=== PATIENT | male | born 1960 | race Caucasian/White ===

== ENCOUNTER 2022-07-22 13:15 | Inpatient (IN) | payer BC ==
[~2022-07-22] VITALS: Ht 182.9 cm; Wt 81.6 kg
--- NOTE | 2022-07-22 13:16 | NUR ---
PT MICHELLE [facility] SQUAD [address]
[2022-07-22 13:19] VITALS: BP 140/80
--- NOTE | 2022-07-22 13:23 | NUR ---
62/M BIBA FROM [facility] [place] D/T SHORTNESS OF BREATH AT CLINIC. PER EMS, PT GIVEN SOLUMEDROL AND 2.5 ALBUTEROL FROM CLINIC RESEARCH AND DEVELOPMENT ENGINEER. PT THEN PLACED ON CPAP VIA EMS EN ROUTE WITH SAT @ 97%. PT PLACED ON BIPAP AT 12/5 @ 40% WITH RATE OF 10 AND NOW SATTING 100%. PT CALM, NO ACUTE DISTRESS. ON MONITOR. PMH: COPD NKA
[2022-07-22] MEDS ORDERED: ALBUTEROL SULFATE/IPRATROPIU 3 ML SOL IH ONE (13:25)
--- NOTE | 2022-07-22 13:36 | NUR ---
COVID AND FLU SWAB COLLECTED AND SENT TO LAB
--- NOTE | 2022-07-22 13:38 | NUR ---
RT AT BEDSIDE FOR BR TX
--- NOTE | 2022-07-22 13:44 | NUR ---
EKG DONE AT BEDSIDE
--- NOTE | 2022-07-22 13:53 | NUR ---
CONSULTING PSYCHIATRIST AT BEDSIDE FOR BLODO DRAW
[2022-07-22 14:19] LABS: PHOSPHORUS 3.5 mg/dL (2.5-4.9)
--- NOTE | 2022-07-22 14:21 | NUR ---
XR AT BEDSIDE
[2022-07-22 14:25] LABS: BASOPHILS # (AUTO) 0.1 K/uL (0.00-0.22); BASOPHILS % (AUTO) 0.8 % (0.0-2.0); EOSINOPHILS # (AUTO) 0.6 K/uL (0-0.4); EOSINOPHILS % (AUTO) 6.4 % (0.0-4.0); HEMATOCRIT 52.7 % (36-52); HEMOGLOBIN 17.4 g/dL (12.0-18.0); LYMPHOCYTES # (AUTO) 0.8 K/uL (2.0-11.5); LYMPHOCYTES % (AUTO) 7.4 % (20.5-51.1); MEAN CORPUSCULAR HEMOGLOBIN 32 pg (27-31); MEAN CORPUSCULAR HGB CONC 33 g/dL (33-37); MEAN CORPUSCULAR VOLUME 95.6 fL (80-94); MONOCYTES # (AUTO) 0.5 K/uL (0.8-1.0); NEUTROPHILS # (AUTO) 8.2 K/uL (1.8-7.7); NEUTROPHILS % (AUTO) 80.4 % (42.2-75.2); PLATELET COUNT (AUTO) 256 K/uL (140-450); RED BLOOD CELL COUNT(AUTO) 5.51 MIL/uL (4.20-6.10); RED CELL DISTRIBUTION WIDTH 14.1 % (11.6-13.7); WHITE BLOOD COUNT (AUTO) 10.1 K/uL (4.8-10.8)
[2022-07-22 14:40] LABS: ALBUMIN 4.2 g/dL (3.4-5.0); ANION GAP 15.9 (8-16); CARBON DIOXIDE 24.7 mmol/L (21-32); CREATININE 1.3 mg/dL (0.6-1.3); POTASSIUM 4.6 mmol/L (3.5-5.1); TOTAL BILIRUBIN 0.7 mg/dL (0.0-1.0)
[2022-07-22 14:42] LABS: PROTHROMBIN TIME 10.5 secs (10.8-13.4)
--- NOTE | 2022-07-22 15:10 | NUR ---
Saul mcdaniel in ED - 07/22/22 at 1517 by [id number] VBG DRAWN AND GIVEN TO RT. PER LAVELL ALMONTE TO DRAW VBG INSTEAD OF ABG
--- NOTE | 2022-07-22 15:10 | NUR ---
ABG DRAWN AND GIVEN TO RT
--- NOTE | 2022-07-22 15:15 | NUR ---
PT PLACED ON 4L NC AND TOLERATING WELL @ 94%. NO ACUTE DISTRESS NOTED
[2022-07-22 15:23] LABS: APPEARANCE,URINE CLEAR (CLEAR); BILIRUBIN,URINE NEGATIVE (NEGATIVE); BLOOD, URINE NEGATIVE (NEGATIVE); COLOR,URINE YELLOW (YELLOW); LEUKOCYTE ESTERASE ,URINE NEGATIVE (NEGATIVE); NITRITE, URINE NEGATIVE (NEGATIVE); UGLUCOSE NEGATIVE (NEGATIVE)
[2022-07-22] MEDS ORDERED: OSELTAMIVIR PHOSPHATE 75 MG CAP PO ONE (16:20)
[2022-07-22] MEDS ORDERED: AZITHROMYCIN 500 MG in DEXTROSE 5% 250 ML IV ONE (16:20)
[2022-07-22] MEDS ORDERED: cefTRIAXone 1,000 MG VIAL ONE (16:41)
[2022-07-22] MEDS ORDERED: AZITHROMYCIN 500 MG INJ VIAL IV ONE (17:02)
[2022-07-22] MEDS ORDERED: ALBUTEROL 0.083% 2.5 MG/3 ML NEBU INH ONE (17:05)
--- NOTE | 2022-07-22 17:09 | NUR ---
PT C/O NEW ONSET SHORTNESS OF BREATH. ERMD NOTIFIED. PAGED RT FOR BR TX. PT SATTING 94% ON 4L
--- NOTE | 2022-07-22 17:13 | NUR ---
RT AT BEDSIDE WITH BR TX
--- NOTE | 2022-07-22 17:39 | NUR ---
PT REPORTS DECREASED SHORTNESS OF BREATH AFTER BR TX.
[2022-07-22] MEDS ORDERED: ATOR40TA PO (18:36)
[2022-07-22] MEDS ORDERED: ASPI-1822 PO (18:36)
[2022-07-22] MEDS ORDERED: AMLO10TA PO (18:36)
[2022-07-22] MEDS ORDERED: BENA40TA PO (18:36)
--- NOTE | 2022-07-22 19:30 | NUR ---
RECEIVED IN BED 8, PENDING ADMISSION FOR COPD EXACERBATION. IS AWAKE, ALERT. O2 CONTINUES AT 4L N/C. PT STATES HE DOES NOT FEEL SOB AT THIS TIME. RESPIRATIONS ARE REGULAR AND UNLABORED.
[2022-07-22 20:15] VITALS: BP 149/95
--- NOTE | 2022-07-22 20:15 | NUR ---
RECEIVED PATIENT FROM ER A NEW ADMIT. ORIENTATION TO MST ROUTINE, UPDATED WHITEBOARD. PATIENT IS AWAKE, ALERT AND ORIENTED X4. SOB ON EXERTION, ON 4L NC SAT AT 94%. DENIES PAIN AT THIS TIME. SKIN WARM AND DRY TO TOUCH. SAFETY PRECAUTION IN PLACE. CALL LIGHT IN REACH, ENCOURAGED TO CALL IF ASSISTANCE IS NEEDED.
--- NOTE | 2022-07-22 20:15 | NUR ---
TRANSFERED TO [facility] VIA GURNEY, ATTACHED TO SENIOR PRINCIPAL ARCHITECT, ACCOMPANIED BY 2 RNS. REPORT GIVEN TO KERRIE IVY.
--- NOTE | 2022-07-22 20:20 | NUR ---
MRSA OF THE NARES DONE AND SENT TO THE LAB PER PROTOCOL.
--- NOTE | 2022-07-22 21:02 | NUR ---
PROVIDED FOOD PER PT'S REQUEST.
--- NOTE | 2022-07-22 21:18 | NUR ---
ORDERS GIVEN BU DR. SOTELO AND WILL BE CARRIED OUT.
[2022-07-22] MEDS: ALBUTEROL SULFATE/IPRATROPIU 3 ML SOL IH PRN (23:40)
--- NOTE | 2022-07-22 23:40 | NUR ---
Patient had breathing treatment, wheezing noted. Call placed to dr. douglass. awaiting call back.
--- NOTE | 2022-07-22 23:52 | NUR ---
Per pt: I feel a lot better." no wheezing noted at this time.
[2022-07-23] VITALS (7 sets, daily range): BP systolic 107–143; BP diastolic 61–94
--- NOTE | 2022-07-23 00:45 | NUR ---
Patient is awake, watching tv. denies shortness of breath at this time.
[2022-07-23] MEDS ORDERED: MORPHINE SULFATE 2 MG/ML SYR IVP PRN (01:20)
[2022-07-23] MEDS ORDERED: HYDROcodone/APAP 5/325 MG 1 TAB TAB PO PRN (01:20)
[2022-07-23] MEDS ORDERED: MAGNESIUM OXIDE 400 MG TAB PO PRN (01:20)
[2022-07-23] MEDS ORDERED: POTASSIUM CHLORIDE 10 MEQ TABER PO PRN (01:20)
[2022-07-23] MEDS ORDERED: ACETAMINOPHEN 325 MG TAB PO PRN (01:20)
[2022-07-23] MEDS ORDERED: ONDANSETRON 4 MG/2 ML VIAL IM/IVP PRN (01:20)
[2022-07-23] MEDS ORDERED: DOCUSATE SODIUM 100 MG GELCAP PO PRN (01:20)
[2022-07-23] MEDS ORDERED: SODIUM PHOS / POTASSIUM PHOS 1 PKT PDR PO PRN (01:20)
[2022-07-23] MEDS ORDERED: guaiFENesin 20 MG/ML UDC PO PRN (01:25)
--- NOTE | 2022-07-23 02:33 | NUR ---
PATIENT IS ASLEEP. NO S/SX OF PAIN NOR DISCOMFORT. CALL LIGHT IN REACH.
[2022-07-23] MEDS: methylPREDNISolone SS 40 MG/ML VIAL IVP SCH ×3 (04:38→21:44)
[2022-07-23] MEDS: ALBUTEROL SULFATE/IPRATROPIU 3 ML SOL IH PRN (05:33)
[2022-07-23] MEDS: ALBUTEROL SULFATE/IPRATROPIU 3 ML SOL IH SCH ×3 (06:00→19:27)
--- NOTE | 2022-07-23 06:12 | NUR ---
PATIENT IS AWAKE, LYING ON THE BED, HOB ELEVATED, WATCHING TV, DENIES SOB, ON O2 NC, DENIES PAIN/DISCOMFORT. CALL LIGHT IS WITHIN REACH. SAFETY PRECAUTIONS IN PLACE.
[2022-07-23] MEDS ORDERED: ALBUTEROL SULFATE/IPRATROPIU 3 ML SOL IH SCH (07:00)
--- NOTE | 2022-07-23 07:14 | NUR ---
ENDORSED PATIENT TO DAY NURSE FOR CONTINUITY OF CARE. PATIENT IS STABLE.
[2022-07-23 07:32] LABS: BASOPHILS % (AUTO) 0.2 % (0.0-2.0); HEMATOCRIT 49.6 % (36-52); HEMOGLOBIN 16.5 g/dL (12.0-18.0); LYMPHOCYTES # (AUTO) 0.4 K/uL (2.0-11.5); MEAN CORPUSCULAR HEMOGLOBIN 32 pg (27-31); MEAN CORPUSCULAR HGB CONC 33 g/dL (33-37); MEAN CORPUSCULAR VOLUME 95.6 fL (80-94); MONOCYTES # (AUTO) 0.3 K/uL (0.8-1.0); MONOCYTES % (AUTO) 2.2 % (1.7-9.3); NEUTROPHILS # (AUTO) 11.9 K/uL (1.8-7.7); NEUTROPHILS % (AUTO) 94.6 % (42.2-75.2); PLATELET COUNT (AUTO) 230 K/uL (140-450); RED BLOOD CELL COUNT(AUTO) 5.19 MIL/uL (4.20-6.10); RED CELL DISTRIBUTION WIDTH 13.8 % (11.6-13.7); WHITE BLOOD COUNT (AUTO) 12.6 K/uL (4.8-10.8)
[2022-07-23 07:43] LABS: ANION GAP 15.2 (8-16); CARBON DIOXIDE 26.4 mmol/L (21-32); CREATININE 1.3 mg/dL (0.6-1.3); POTASSIUM 4.6 mmol/L (3.5-5.1)
[2022-07-23 07:58] LABS: MAGNESIUM 2.2 mg/dL (1.8-2.4); PHOSPHORUS 3.2 mg/dL (2.5-4.9)
[2022-07-23] MEDS: ASPIRIN 81 MG TAB.CHEW PO SCH (10:49)
[2022-07-23] MEDS: OSELTAMIVIR PHOSPHATE 75 MG CAP PO SCH ×2 (10:50→21:44)
[2022-07-23] MEDS: AZITHROMYCIN 250 MG TAB PO SCH (10:50)
[2022-07-23] MEDS: BENAZEPRIL 20 MG TAB PO SCH (10:51)
[2022-07-23] MEDS: amLODIPine 5 MG TAB PO SCH (10:53)
[2022-07-23] MEDS: LORATADINE 10 MG TAB PO SCH (11:25)
[2022-07-23] MEDS: MONTELUKAST SODIUM 10 MG TAB PO SCH (11:26)
[2022-07-23] MEDS: PANTOPRAZOLE 40 MG TABEC PO SCH (11:28)
--- NOTE | 2022-07-23 14:46 | NUR ---
DC PLANNING SW MET WITH PT AT BEDSIDE TO COMPLETE ASSESSMENT. PT REPORTS RESIDING ON A GROUND FLOOR APT, ALONE, AT THE ADDRESS LISTED ON FILE. PT IDENTIFIED BONITA REYES, SON, EMERGENCY CONTACT. PT REPORTS THAT HE DOES NOT WANT HIS SON CALLED FOR ANY REASON, UNLESS HE PASSES. PT REPORTS MEETING WITH PCP. DR. ARELIS LOPEZ AT [facility] IN [place], NEEDED, LAST VISIT; 2 WEEKS AGO. PT REPORTS RECENTLY BEING NON COMPLIANT WITH MEDICATIONS, WHEN ASKED WHY, PT REPORTS THAT HE SIMPLY JUST DIDN'T TAKE. PT DENIES BARRIERS IN ACCESS TO MEDICATION AND REPORTS RECEIVING MEDICATION FROM [facility] IN [place], WHEN NEEDED. PT REPORTS BEING INDEPENDENT IN ALL ACTIVITIES AND DENIES USE OF DME. PT COMPLETES ADLS INDEPENDENTLY. PT DENIES MH HX. PT REPORTS SUBSTANCE USE HX OF ALCOHOL USE AND TOBACCO USE. PT REPORTS BEING SOBER FROM ALCOHOL FOR 20 YRS AND REPORTS HE STOPPED SMOKING,12 YRS AGO. PT DENIES HX OF DIALYSIS, HH, AND SNF PLACEMENT. PT REPORTS BEING TOLD THAT HE IS BORDERLINE DIABETIC HOWEVER, PT DOES NOT TAKE INSULIN OR MEDICATION. PT REPORTS ADEQUATE FOOD IN THE HOME AND ADEQUATE FRIEND AND FAMILY SUPPORT. PT REPORTS DC IS TO RETURN HOME, HOWEVER, PT REPORTS HE MAY REQUIRE RIDE SHARE SERVICE TO HIS CAR, ONCE DC. NOTIFIED PT THAT RIDE SHARE SERVICE CAN BE ARRANGED BY NURSE, ONCE CLEARED FOR DC. Addendum: 07/23/22 at 1449 by Jd SOTO Amended: Links added.
[2022-07-23] MEDS ORDERED: ALBUTEROL SULFATE/IPRATROPIU 3 ML SOL IH PRN (16:35)
--- NOTE | 2022-07-23 16:44 | NUR ---
PATIENT HAS BEEN SCREENED AND CATEGORIZED MODERATE NUTRITION RISK. PATIENT WILL BE SEEN WITHIN 3-5 DAYS OF ADMISSION. 07/22/22-07/27/22 NOTED: INCORRECT BMI AFTER CONFIRMING WITH PT'S CHART REVIEWED BY ABEL DESAI RD
--- NOTE | 2022-07-23 19:59 | NUR ---
1926 LOWERED FIO2 TO 2LNC. SATS 92%. ADDED WATER FOR HUMIDIFICATION
[2022-07-23] MEDS: ATORVASTATIN 20 MG TAB PO SCH (21:44)
--- NOTE | 2022-07-23 23:11 | NUR ---
PT ARRIVED FROM ED AT 2107 IN [facility]. PT A+O*4. PT C/O PAIN AND WAS GIVEN, PER HER REQUEST, NORCO. MEDICATION EFFECTIVE W/I 1 HR OF ADMINISTRATION. PT THEN VERBALIZED WANTING TO HAVE A ROOM CHANGE OR BE DISCHARGED HOME D/T ROOMMATE "NOISE". PT WAS SWITCHED TO ROOM 107B W/O INCIDENT.
[2022-07-24] MEDS: ALBUTEROL SULFATE/IPRATROPIU 3 ML SOL IH SCH ×4 (01:09→19:24)
[2022-07-24] MEDS: methylPREDNISolone SS 40 MG/ML VIAL IVP SCH ×3 (05:00→21:56)
--- NOTE | 2022-07-24 07:26 | NUR ---
RECEIVED REPORT FROM DIRECTOR MEETINGS NURSE ANNE MARIE FOR CONTINUITY OF CARE. PT AWAKE IN BED. A&O4, ABLE TO MAKE NEEDS KNOWN. RT AT BEDSIDE GIVING PT BREATHING TREATMENT. ON FINANCIAL ECONOMIST. SKIN IS INTACT, WARM AND DRY TO TOUCH. IV SITE ON RAC G18, SL. RT LEFT PT ON 2L NC, PER PT HE FELT BETTER TODAY. NO SOB. NO C/O OF PAIN. CALL LIGHT WITHIN REACH. SAFETY PRECAUTIONS IN PLACE.
[2022-07-24 07:42] LABS: ANION GAP 13.9 (8-16); CREATININE 1.4 mg/dL (0.6-1.3); POTASSIUM 4.9 mmol/L (3.5-5.1)
[2022-07-24 07:46] LABS: HEMATOCRIT 47.5 % (36-52); HEMOGLOBIN 15.8 g/dL (12.0-18.0); MEAN CORPUSCULAR HEMOGLOBIN 31 pg (27-31); MEAN CORPUSCULAR HGB CONC 33 g/dL (33-37); MEAN CORPUSCULAR VOLUME 94.3 fL (80-94); PLATELET COUNT (AUTO) 268 K/uL (140-450); RED BLOOD CELL COUNT(AUTO) 5.03 MIL/uL (4.20-6.10); RED CELL DISTRIBUTION WIDTH 14.3 % (11.6-13.7); WHITE BLOOD COUNT (AUTO) 18.1 K/uL (4.8-10.8)
[2022-07-24 08:00] VITALS: BP 137/75
[2022-07-24] MEDS ORDERED: CLINICAL MONITORING MC PRN (08:20)
[2022-07-24] MEDS: AZITHROMYCIN 250 MG TAB PO SCH (08:31)
[2022-07-24] MEDS: LORATADINE 10 MG TAB PO SCH (08:32)
[2022-07-24] MEDS: ASPIRIN 81 MG TAB.CHEW PO SCH (08:32)
[2022-07-24] MEDS: amLODIPine 5 MG TAB PO SCH (08:32)
[2022-07-24] MEDS: PANTOPRAZOLE 40 MG TABEC PO SCH (08:33)
[2022-07-24] MEDS: BENAZEPRIL 20 MG TAB PO SCH (08:33)
[2022-07-24] MEDS: MONTELUKAST SODIUM 10 MG TAB PO SCH (08:33)
--- NOTE | 2022-07-24 08:40 | NUR ---
ADMINISTERED SCHEDULED MORNING MEDS. PT TEACHING ABOUT MEDS GIVEN. PT VERBALIZED UNDERSTANDING. CALLED PHARMACY REGARDING TAMIFLU NOT AVAILABLE ON BOTH [facility] OMNICELS. PER PHARMACIST, WAIT FOR THE DELIVERY FROM THE OTHER HOSPITAL.
--- NOTE | 2022-07-24 09:05 | NUR ---
PT CHECKED AND SEEN BY DR BALDERAS.
[2022-07-24 09:13] LABS: LYMPHOCYTES % (MANUAL) 2 % (20-46); MONOCYTES % (MANUAL) 4 % (5-12)
[2022-07-24] MEDS: OSELTAMIVIR PHOSPHATE 30 MG CAP PO SCH (11:29)
--- NOTE | 2022-07-24 11:33 | NUR ---
SCHEDULED TAMIFLU ADMINISTERED. PT TOLERATED WELL. PT SITTING AT BEDSIDE. NO COMPLAINTS OF PAIN. NO SOB. PT STATED, "I FEEL BETTER". CALL LIGHT WITHIN REACH. SAFETY PRECAUTIONS IN PLACE.
[2022-07-24 12:00] VITALS: BP 102/68
--- NOTE | 2022-07-24 13:21 | NUR ---
SCHEDULED IV MED GIVEN BY KERRIE POZO. NO ADVERSE REACTION NOTED.
--- NOTE | 2022-07-24 15:21 | NUR ---
PT SITTING IN BED. HAD 1 LARGE BM. NO COMPLAINTS OF PAIN. NO SOB. PT STATED "I WENT TO TO HAVE BM. WASHED MY HANDS. GET SOMETHING FROM MY SIDE TABLE WITHOUT O2 AND THERE WAS NOTHING WRONG WITH MY BREATHING. I GUESS MY BREATHING WENT BACK FROM MY BASELINE BEFORE I CAME HERE".
[2022-07-24 16:00] VITALS: BP 107/62
--- NOTE | 2022-07-24 16:45 | NUR ---
@1645 WENT TO CHECK ON PT SITTING IN A CHAIR NEXT TO BED WITHOUT O2 NO SOB NOTED OR DISTRESS NOTED PT STATED HE IS DOING GOOD WITHOUT O2 EXPECT ON EXERTION PT GET SOB MASSIEL DAVENPORT OBSERVE PT FOR ABOUT 15MIN WITHOUT O2 PT SATTING 86-88% AFTER THE 15MIN PT WENT BACK TO BED AND PLACED PT O2 ON PT PT WENT FROM 87-93% ON 2LMP WILL CONT TO MONITOR
--- NOTE | 2022-07-24 17:31 | NUR ---
IV ABX ADMINISTERED BY KERRIE POZO. NO ADVERSE REACTION NOTED.
--- NOTE | 2022-07-24 18:25 | NUR ---
PT SITTING IN BED, EATING DINNER. NO COMPLAINTS OF PAIN. NO SOB. NO DISTRESS NOTED. STILL ON 2L, NC. CALL LIGHT WITHIN REACH. SAFETY PRECAUTIONS IN PLACE.
--- NOTE | 2022-07-24 19:18 | NUR ---
RECEIVED ENDORSEMENT FROM DAY SHIFT NURSE FOR CONTINUITY OF CARE. PT IS SLEEPING WHEN NURSE HAVE ROUNDS BUT AROUSABLE ON STIMULI. RESPIRATION EVEN WITH NO SOB OR DISTRESS. IV SALINE LOCK ON RIGHT AC 18G INTACT AND PATENT. SKIN INTACT. PT COUGH OCCASIONALLY WITH UN PRODUCTIVE COUGH. CONTINUE MONITORING.
--- NOTE | 2022-07-24 19:19 | NUR ---
ENDORSED PT TO NURSING ADMIN NURSE ALEKS. ALL NEEDS MET THROUGHOUT SHIFT. PT IS STABLE.
[2022-07-24 20:00] VITALS: BP 130/75
[2022-07-24] MEDS: ATORVASTATIN 20 MG TAB PO SCH (21:55)
--- NOTE | 2022-07-24 22:00 | NUR ---
PT IS AWAKE, ALERT AND VERBALLY RESPONSIVE TO STIMULI. PT REQUEST FOR COFFEE.
[2022-07-25] VITALS: BP 118/70
[2022-07-25] MEDS: ALBUTEROL SULFATE/IPRATROPIU 3 ML SOL IH SCH ×3 (00:16→19:12)
--- NOTE | 2022-07-25 00:30 | NUR ---
PT IS ASLEEP. NO SOB OR DISTRESS.
--- NOTE | 2022-07-25 02:00 | NUR ---
PT USES RESTROOM. REQUEST FOR COFFEE.
[2022-07-25 04:00] VITALS: BP 111/72
[2022-07-25] MEDS: methylPREDNISolone SS 40 MG/ML VIAL IVP SCH ×3 (05:46→20:24)
--- NOTE | 2022-07-25 05:46 | NUR ---
PT USES RESTROOM INDEPENDENTLY, NO SOB OR DISTRESS. PT REQUEST FOR COFFEE DRINK. NO SOB OR DISTRESS. PT DENIES OF PAIN OR DISCOMFORT. IV SALINE LOCK INTACT.
--- NOTE | 2022-07-25 07:15 | NUR ---
PT IS ON STABLE CONDITION, NO SOB OR DISTRESS. ALL SAFETY MEASURES ARE IN PLACE. ENDORSED TO DAY SHIFT NURSE FOR CONTINUITY OF CARE.
--- NOTE | 2022-07-25 07:16 | NUR ---
RECEIVED PT FROM LEAN SENSEI NURSE IDA FOR CONTINUITY OF CARE. PT AWAKE, IN BED. RESPIRATIONS EVEN AND UNLABORED ON RA. NO DISTRESS NOTED. NO COMPLAINTS OF PAIN. A&O4, ABLE TO MAKE NEEDS KNOWN. IV SITE ON RAC G18, SL. CALL LIGHT WITHIN REACH. SAFETY PRECAUTIONS IN PLACE.
--- NOTE | 2022-07-25 07:27 | NUR ---
PMHX: COPD; PATIENT STATES THAT NOC OVERNIGHT STOCKER REMOVED SUPPLEMENTAL OXYGEN; OVERNIGHT STOCKER TO MAINTAIN PATIENT ON ROOM AIR; OVERNIGHT STOCKER TO MONITOR SATURATION THROUGHOUT DAYS
[2022-07-25 07:52] LABS: BASOPHILS % (AUTO) 0.1 % (0.0-2.0); CREATININE 1.4 mg/dL (0.6-1.3); HEMATOCRIT 49.7 % (36-52); HEMOGLOBIN 16.5 g/dL (12.0-18.0); LYMPHOCYTES # (AUTO) 0.7 K/uL (2.0-11.5); MEAN CORPUSCULAR HEMOGLOBIN 32 pg (27-31); MEAN CORPUSCULAR HGB CONC 33 g/dL (33-37); MEAN CORPUSCULAR VOLUME 94.6 fL (80-94); MONOCYTES # (AUTO) 0.7 K/uL (0.8-1.0); MONOCYTES % (AUTO) 3.8 % (1.7-9.3); NEUTROPHILS # (AUTO) 17.1 K/uL (1.8-7.7); PLATELET COUNT (AUTO) 312 K/uL (140-450); RED BLOOD CELL COUNT(AUTO) 5.25 MIL/uL (4.20-6.10); RED CELL DISTRIBUTION WIDTH 14.3 % (11.6-13.7); WHITE BLOOD COUNT (AUTO) 18.6 K/uL (4.8-10.8)
[2022-07-25 08:00] VITALS: BP 139/86
[2022-07-25 08:25] LABS: NEUTROPHILS % (AUTO) 92.1 % (42.2-75.2)
[2022-07-25] MEDS: amLODIPine 5 MG TAB PO SCH (08:27)
[2022-07-25] MEDS: PANTOPRAZOLE 40 MG TABEC PO SCH (08:28)
[2022-07-25] MEDS: ASPIRIN 81 MG TAB.CHEW PO SCH (08:28)
[2022-07-25] MEDS: LORATADINE 10 MG TAB PO SCH (08:29)
[2022-07-25] MEDS: AZITHROMYCIN 250 MG TAB PO SCH (08:29)
[2022-07-25] MEDS: MONTELUKAST SODIUM 10 MG TAB PO SCH (08:29)
[2022-07-25] MEDS: BENAZEPRIL 20 MG TAB PO SCH (08:29)
[2022-07-25] MEDS: OSELTAMIVIR PHOSPHATE 30 MG CAP PO SCH (08:30)
--- NOTE | 2022-07-25 08:35 | NUR ---
ADMINISTERED SCHEDULED MORNING MEDS. PT TEACHING ABOUT MEDS GIVEN. PT VERBALIZED UNDERSTANDING.
[2022-07-25 12:00] VITALS: BP 131/78
--- NOTE | 2022-07-25 12:35 | NUR ---
PT SITTING IN BED, EATING LUNCH. NO COMPLAINTS OF PAIN. NO SOB. PT STATED "I'M OK ON ROOM AIR".
--- NOTE | 2022-07-25 12:39 | NUR ---
PATIENT STATES "I WAS AMBULATING" PRIOR TO HHN THERAPY; WAGON DRILLER TO MONITOR SATURATION THROUGHOUT DAY
--- NOTE | 2022-07-25 15:27 | NUR ---
PT SITTING IN BED, RESTING. NO COMPLAINTS OF PAIN. NO SOB, DIFFICULTY BREATHING, IN ROOM AIR. NO DISTRESS NOTED. SAFETY PRECAUTIONS IN PLACE.
[2022-07-25 16:00] VITALS: BP 128/79
--- NOTE | 2022-07-25 17:12 | NUR ---
IV ABX ADMINISTERED BY KERRIE CONTRERAS. NO ADVERSE REACTION NOTED.
--- NOTE | 2022-07-25 19:24 | NUR ---
ENDORSED PT TO INFORMATION TECHNOLOGY ARCHITECT NURSE FOR CONTINUITY OF CARE. ALL NEEDS MET THROUGHOUT SHIFT. PT IS STABLE.
--- NOTE | 2022-07-25 19:25 | NUR ---
RECEIVED PT FROM MORNING SHIFT NURSE. PT IS LYING ON THE BED, WATCHING TV. PT IS AOX4, AMBULATORY WITH BEDSIDE COMMODE, ABLE TO VERBALIZE NEEDS AND FOLLOW COMMANDS. PT IS ON ROOM AIR AND ON CARDIAC DIET. PT HAS IV ON RIGHT AC GAUGE 18 SALINE LOCK. PT DENIES PAIN AT THIS TIME. NO S/S OF RESPIRATORY DISTRESS NOTED. PT SKIN IS INTACT. ALL SAFETY MEASURES IMPLEMENTED. BED IN LOW POSITION, BED WHEELS ON LOCKED AND CALL LIGHT WITHIN REACH.
[2022-07-25 20:00] VITALS: BP 146/81
[2022-07-25] MEDS: ATORVASTATIN 20 MG TAB PO SCH (20:24)
--- NOTE | 2022-07-25 20:24 | NUR ---
ALL SCHEDULED AND PRESCRIBED MEDICATION WAS GIVEN TO PT PER MD ORDER. ALL SAFETY MEASURES IMPLEMENTED. BED IN LOW POSITION, BED WHEELS ON LOCKED AND CALL LIGHT WITHIN REACH.
--- NOTE | 2022-07-25 22:00 | NUR ---
CALLED RT PER PT REQUEST DUE TO PT WANTS BREATHING TREATMENT. ALL SAFETY MEASURES IMPLEMENTED. BED IN LOW POSITION, BED WHEELS ON LOCKED AND CALL LIGHT WITHIN REACH.
[2022-07-26] VITALS: BP 127/77
--- NOTE | 2022-07-26 | NUR ---
RT PUT 4L NC TO PT FROM ROOM AIR.
[2022-07-26] MEDS: ALBUTEROL SULFATE/IPRATROPIU 3 ML SOL IH SCH ×5 (02:31→21:22)
[2022-07-26 04:00] VITALS: BP 159/90
[2022-07-26] MEDS: methylPREDNISolone SS 40 MG/ML VIAL IVP SCH ×3 (04:14→20:50)
--- NOTE | 2022-07-26 04:14 | NUR ---
SCHEDULED AND PRESCRIBED MEDICATION WAS GIVEN TO PT PER MD ORDER. ALL SAFETY MEASURES IMPLEMENTED. BED IN LOW POSITION, BED WHEELS ON LOC AND CALL LIGHT WITHIN REACH.
--- NOTE | 2022-07-26 07:21 | NUR ---
PT IS STABLE. ENDORSED PT TO MORNING SHIFT NURSE FOR CONTINUITY OF CARE.
--- NOTE | 2022-07-26 07:22 | NUR ---
RECEIVED PT FROM NEWS PRODUCTION ASSISTANT NURSE DICKSON FOR CONTINUITY OF CARE. PT AWAKE IN BED. A&O4, ABLE TO COMMUNICATE NEEDS. RESPIRATIONS EVEN AND UNLABORED ON 4L, NC. NO COMPLAINTS OF PAIN. NO DISTRESS NOTED. PT HAD EPISODES OF NON-PRODUCTIVE COUGHING. ON FINANCIAL REPORTING DIRECTOR. CALL LIGHT WITHIN REACH. SAFETY PRECAUTIONS IN PLACE.
[2022-07-26 08:00] VITALS: BP 149/89
--- NOTE | 2022-07-26 08:11 | NUR ---
FOUND PATIENT IN BED. PATIENT TOLERATED TREATMENT WELL. UPON AUSCULTATION PATIENT HAD EXPIRATORY WHEEZES. POST TX PATIENT HAD IMPROVED AERATION.
[2022-07-26] MEDS: PANTOPRAZOLE 40 MG TABEC PO SCH (08:40)
[2022-07-26] MEDS: OSELTAMIVIR PHOSPHATE 30 MG CAP PO SCH (08:41)
[2022-07-26] MEDS: LORATADINE 10 MG TAB PO SCH (08:41)
[2022-07-26] MEDS: MONTELUKAST SODIUM 10 MG TAB PO SCH (08:41)
[2022-07-26] MEDS: AZITHROMYCIN 250 MG TAB PO SCH (08:42)
[2022-07-26] MEDS: amLODIPine 5 MG TAB PO SCH (08:42)
[2022-07-26] MEDS: ASPIRIN 81 MG TAB.CHEW PO SCH (08:43)
[2022-07-26] MEDS: BENAZEPRIL 20 MG TAB PO SCH (08:43)
--- NOTE | 2022-07-26 08:43 | NUR ---
ADMINISTERED SCHEDULED MORNING MEDS. PT TOLERATED WELL.
[2022-07-26 09:47] LABS: BASOPHILS % (AUTO) 0.1 % (0.0-2.0); HEMOGLOBIN 16.6 g/dL (12.0-18.0); LYMPHOCYTES # (AUTO) 0.4 K/uL (2.0-11.5); LYMPHOCYTES % (AUTO) 3.2 % (20.5-51.1); MEAN CORPUSCULAR HEMOGLOBIN 32 pg (27-31); MEAN CORPUSCULAR HGB CONC 33 g/dL (33-37); MEAN CORPUSCULAR VOLUME 94.6 fL (80-94); MONOCYTES # (AUTO) 0.6 K/uL (0.8-1.0); MONOCYTES % (AUTO) 4.5 % (1.7-9.3); NEUTROPHILS # (AUTO) 12.7 K/uL (1.8-7.7); NEUTROPHILS % (AUTO) 92.2 % (42.2-75.2); PLATELET COUNT (AUTO) 276 K/uL (140-450); RED BLOOD CELL COUNT(AUTO) 5.29 MIL/uL (4.20-6.10); RED CELL DISTRIBUTION WIDTH 14.2 % (11.6-13.7); WHITE BLOOD COUNT (AUTO) 13.7 K/uL (4.8-10.8)
[2022-07-26 09:59] LABS: ANION GAP 15.1 (8-16); CARBON DIOXIDE 25.5 mmol/L (21-32); CREATININE 1.4 mg/dL (0.6-1.3); POTASSIUM 4.6 mmol/L (3.5-5.1)
--- NOTE | 2022-07-26 11:30 | NUR ---
PT SITTING AT BEDSIDE. NO COMPLAINTS OF PAIN. NO SOB, DIFFICULTY BREATHING. WILL CONTINUE TO MONITOR.
[2022-07-26 12:00] VITALS: BP 123/70
--- NOTE | 2022-07-26 14:03 | NUR ---
RT AT BEDSIDE. O2 CHANGED TO 2L SATTING AT 95%.
[2022-07-26 16:00] VITALS: BP 121/69
--- NOTE | 2022-07-26 16:12 | NUR ---
PER DOCTOR PATIENT NEEDS TO BE TITRATED TO MAINTAIN SPO2 >90%. PLACED PATIENT ON 2L AND MONITORED FOR 10-15 MINS AND PATIENT WAS ABLE TO MAINTAIN SPO2 AT 92-95% BEFORE AND AFTER HHN TREATMENT. WILL CONTINUE TO MONITOR.
--- NOTE | 2022-07-26 17:06 | NUR ---
07/26/2022 RD INITIAL ASSESSMENT COMPLETED. PLEASE REFER TO NUTRITION ASSESSMENT UNDER CARE ACTIVITY FOR ESTIMATED NUTRITIONAL NEEDS. 1.CONTINUE WITH CARDIAC DIET. 2.MONITOR PO INTAKE. 3.RD TO FOLLOW-UP IN 5-7 DAYS PATIENT IS LOW RISK. CORINNA MAGUIRE, RD
--- NOTE | 2022-07-26 17:41 | NUR ---
IV ABX ADMINISTERED BY KERRIE CONTRERAS. NO ADVERSE REACTION NOTED.
--- NOTE | 2022-07-26 19:10 | NUR ---
RECEIVED REPORT FROM DAY NURSE. PATIENT WAS SITTING UP IN BED, DENIES PAIN. PATIENT HAS G22 ON RIGHT AC, FLUSHED WITHOUT DIFFICULTY. CALL LIGHT WITHIN REACH.
--- NOTE | 2022-07-26 19:12 | NUR ---
ENDORSED PT TO COATING MANAGER NURSE FOR CONTINUITY OF CARE. ALL NEEDS MET THROUGHOUT SHIFT. PT IS STABLE.
[2022-07-26 20:00] VITALS: BP 163/92
[2022-07-26] MEDS: ATORVASTATIN 20 MG TAB PO SCH (20:50)
[2022-07-26] MEDS: OSELTAMIVIR PHOSPHATE 75 MG CAP PO SCH (20:51)
--- NOTE | 2022-07-26 21:00 | NUR ---
DUE MEDICATIONS GIVEN ORDERED. PATIENT C/O SOB, WHEEZING UPON AUSCULTATION, CALLED RT, PATIENT INFORMED STAFF THAT HE WAS NOT GIVEN 6PM BREATHING TREATMENT. CALL LIGHT WITHIN REACH. WILL CONTINUE TO MONITOR THE PATIENT.
--- NOTE | 2022-07-26 23:08 | NUR ---
PATIENT GIVEN WARM BLANKET. PATIENT DENIES PAIN, NO C/O SOB. SAFETY PRECAUTIONS IN PLACE. CALL LIGHT WITHIN REACH.
[2022-07-27] VITALS: BP 150/83
--- NOTE | 2022-07-27 02:01 | NUR ---
PATIENT ASLEEP AT THIS TIME. VISIBLE CHEST RISE AND FALL NOTED. WILL CONTINUE TO OBSERVE.
[2022-07-27] MEDS: ALBUTEROL SULFATE/IPRATROPIU 3 ML SOL IH SCH ×4 (02:29→17:39)
[2022-07-27 04:00] VITALS: BP 119/80
--- NOTE | 2022-07-27 04:00 | NUR ---
PATIENT VITAL SIGNS STABLE, AFEBRILE, SATING 96% ON 2L/NC. NO COMPLAIN AT THIS TIME. PATIENT NOT ON ANY DISTRESS. CALL LIGHT WITHIN REACH. WILL CONTINUE OBSERVATION.
[2022-07-27] MEDS: methylPREDNISolone SS 40 MG/ML VIAL IVP SCH ×2 (04:35→12:55)
--- NOTE | 2022-07-27 04:45 | NUR ---
PATIENT IS AWAKE, DENIES PAIN, NO C/O SOB. DUE MEDICATION GIVEN ORDERED. CALL LIGHT WITHIN REACH.
--- NOTE | 2022-07-27 06:41 | NUR ---
NO ACUTE EVENT THROUGHOUT THE NIGHT. PATIENT STABLE AND NOT ON ANY DISTRESS. NO COMPLAIN AT THIS TIME. ALL NEEDS ATTENDED. CALL LIGHT WITHIN REACH. WILL ENDORSE THE PATIENT TO THE ONCOMING NURSE FOR CONTINUITY OF CARE.
[2022-07-27 07:10] LABS: BASOPHILS % (AUTO) 0.1 % (0.0-2.0); HEMATOCRIT 47.1 % (36-52); HEMOGLOBIN 15.9 g/dL (12.0-18.0); LYMPHOCYTES # (AUTO) 0.5 K/uL (2.0-11.5); LYMPHOCYTES % (AUTO) 4.4 % (20.5-51.1); MEAN CORPUSCULAR HEMOGLOBIN 32 pg (27-31); MEAN CORPUSCULAR HGB CONC 34 g/dL (33-37); MEAN CORPUSCULAR VOLUME 94.2 fL (80-94); MONOCYTES # (AUTO) 0.7 K/uL (0.8-1.0); MONOCYTES % (AUTO) 6.6 % (1.7-9.3); NEUTROPHILS % (AUTO) 88.9 % (42.2-75.2); PLATELET COUNT (AUTO) 274 K/uL (140-450); RED BLOOD CELL COUNT(AUTO) 4.99 MIL/uL (4.20-6.10); RED CELL DISTRIBUTION WIDTH 13.9 % (11.6-13.7); WHITE BLOOD COUNT (AUTO) 11.2 K/uL (4.8-10.8)
--- NOTE | 2022-07-27 07:19 | NUR ---
ENDORSED PATIENT TO DAY NURSE FOR CONTINUITY OF CARE. ALL NEEDS MET THROUGHOUT THE SHIFT. PATIENT IS STABLE.
--- NOTE | 2022-07-27 07:30 | NUR ---
FOUND PATIENT RESTING COMFORTABLY ON ROOM AIR. NO SIGN OF RESPIRATORY DISTRESS. PATIENT SATING 90% ON ROOM AIR. WILL CONTINUE TO MONITOR.
[2022-07-27 07:35] LABS: ANION GAP 12.5 (8-16); CARBON DIOXIDE 28.5 mmol/L (21-32); CREATININE 1.3 mg/dL (0.6-1.3)
--- NOTE | 2022-07-27 07:41 | NUR ---
GOT REPORT FROM THE NIGHT NURSE, PT AWAKE DISCUSSED POC. NO SOB. [id number]
[2022-07-27 08:00] VITALS: BP 145/86
[2022-07-27 08:25] LABS: MAGNESIUM 2.4 mg/dL (1.8-2.4); PHOSPHORUS 3.8 mg/dL (2.5-4.9)
[2022-07-27] MEDS: OSELTAMIVIR PHOSPHATE 75 MG CAP PO SCH (09:30)
[2022-07-27] MEDS: BENAZEPRIL 20 MG TAB PO SCH (09:30)
[2022-07-27] MEDS: MONTELUKAST SODIUM 10 MG TAB PO SCH (09:30)
[2022-07-27] MEDS: amLODIPine 5 MG TAB PO SCH (09:31)
[2022-07-27] MEDS: PANTOPRAZOLE 40 MG TABEC PO SCH (09:31)
[2022-07-27] MEDS: AZITHROMYCIN 250 MG TAB PO SCH (09:31)
[2022-07-27] MEDS: ASPIRIN 81 MG TAB.CHEW PO SCH (09:31)
[2022-07-27] MEDS: LORATADINE 10 MG TAB PO SCH (09:31)
--- NOTE | 2022-07-27 11:54 | NUR ---
PERFORMED WALK TEST TO QUALIFY FOR HOME O2 USE. BEFORE WE STARTED THE WALK TEST PATIENT WAS SATING AT REST 92% AT 11:45AM. PATIENT WALKED FOR 7 MINS IN THE ROOM. WOB INCREASED AND PATIENT DESATED TO 87% AT 11:52AM. HAD PATIENT SIT AND REST AND PLACED PATIENT ON 2L NC AT WHICH TIME PATIENT WAS ABLE TO SATURATE AT 90% SPO2 AT 11:54AM.
[2022-07-27] MEDS ORDERED: MONT10TA35 PO (12:40)
[2022-07-27] MEDS ORDERED: TAM75 PO (12:40)
[2022-07-27] MEDS ORDERED: PRED10TA5 PO (12:40)
[2022-07-27] MEDS ORDERED: LORA10TA19 PO (12:40)
[2022-07-27 13:25] VITALS: BP 119/72
[2022-07-27 13:48] VITALS: BP 119/72
--- NOTE | 2022-07-27 17:21 | NUR ---
PT DISCHARGED HOME , DISCHARGE INSTRUCTION GIVEN, IV AND ID BAND REMOVED, PT GOT BREATHING TREATMENT BEFORE LEAVING.[id number]
== END 2022-07-27 17:20 | disposition home or self-care (01) | DRG 871 ==
LOC: MED 13:15 → MTU 17:53
PROVIDERS: ADMIT Hospitalist; ATTEND Hospitalist
PROC: 5A09357 Assistance with Respiratory Ventilation, Less than 24 Consecutive Hours, Continuous Positive Airway Pressure (ICD-10-PCS; principal; 2022-07-22)
DX: A41.9 Sepsis, unspecified organism (principal); J18.9 Pneumonia, unspecified organism; J96.01 Acute respiratory failure with hypoxia; J44.1 Chronic obstructive pulmonary disease with (acute) exacerbation; J90 Pleural effusion, not elsewhere classified; E78.5 Hyperlipidemia, unspecified; I10 Essential (primary) hypertension; E78.00 Pure hypercholesterolemia, unspecified; J10.1 Influenza due to other identified influenza virus with other respiratory manifestations; I25.10 Atherosclerotic heart disease of native coronary artery without angina pectoris; Z20.822 Contact with and (suspected) exposure to COVID-19; Z95.1 Presence of aortocoronary bypass graft; Z87.891 Personal history of nicotine dependence; Z79.82 Long term (current) use of aspirin; Z79.899 Other long term (current) drug therapy
CPT/HCPCS: 36415; 71045; 76604; 80048; 80053; 81003; 82550; 82553; 82803; 83605; 83690; 83735; 83880; 84100; 85025; 85610; 85730; 87040; 87081; 93005; 94617; 94640; 94660; 96365; 96367; 97116; 99285; J0456; J0696; J2920; J7060; J7613; Q0092